=== PATIENT | male | born 1995 | race Caucasian/White ===

== ENCOUNTER 2020-01-05 12:29 | Emergency (ER) | payer OTHER ==
[~2020-01-05] VITALS: Ht 188 cm; Wt 72.6 kg
[2020-01-05 13:09] LABS: URINE BILIRUBIN NEGATIVE (Negative); URINE BLOOD 3+ (Negative); URINE CLARITY CLEAR; URINE COLOR YELLOW; URINE GLUCOSE-RANDOM NEGATIVE (Negative); URINE KETONES NEGATIVE (Negative); URINE LEUKOCYTES-REFLEX NEGATIVE (Negative); URINE NITRITE-REFLEX NEGATIVE (Negative); URINE PROTEIN NEGATIVE (Negative); URINE SPECIFIC GRAVITY 1.015 (1.005-1.030); URINE UROBILINOGEN 0.2 E.U./dl (0.2-1.0)
[2020-01-05 13:16] LABS: AMP/METHAMP Negative (Negative); BARBITURATES Negative (Negative); BENZODIAZEPINES Negative (Negative); COCAINE Negative (Negative); METHADONE Negative (Negative); OPIATES Negative (Negative); PCP Negative (Negative); THC POSITIVE (Negative)
[2020-01-05 13:18] LABS: BACTERIA-REFLEX 1-9 Few /HPF (None Seen); CASTS None Seen /LPF (None Seen); CRYSTALS None Seen /LPF (None Seen); SQUAMOUS 0-3 Few /LPF (0-3); URINE RBC 3-10 Few /HPF (0-2); URINE WBC-REFLEX 0-5 Rare /HPF (0-5)
[2020-01-05 13:21] LABS: ABSOLUTE BASOPHILS 0.1 thou/uL (0.0-0.2); ABSOLUTE EOSINOPHILS 0.2 thou/uL (0.0-0.7); ABSOLUTE MONOCYTES 0.5 thou/uL (0.0-1.2); ABSOLUTE NEUTROPHILS 4.7 thou/uL (1.6-8.1); BASOPHILS 0.9 %; EOSINOPHILS 2.5 %; HEMATOCRIT 30.4 % (42.0-52.0); HEMOGLOBIN 9.7 gm/dL (14.0-18.0); MCHC 31.9 g/dL (28.0-37.0); MCV 72.3 fL (80.0-100.0); MONOCYTES 7.2 %; MPV 6.5 fl. (7.2-11.1); NUCLEATED RBCS 0 /100WBC; PLATELET COUNT* 359 thou/uL (150-400); POLYS 74.4 %; RBC 4.21 mil/uL (4.50-6.00); RDW-CV 17.7 % (10.5-14.5); WBC 6.3 thou/uL (4.0-11.0)
[2020-01-05 13:33] LABS: CALCIUM 8.4 mg/dL (8.5-10.1); CREATININE 0.8 mg/dL (0.6-1.3)
[2020-01-05 13:38] LABS: TOTAL BILIRUBIN 0.2 mg/dL (<0.1-1.0); TOTAL PROTEIN 7.3 g/dL (6.4-8.2)
[2020-01-05] MEDS ORDERED: PREDNISONE 10 M10 M1 PO (14:52)
[2020-01-05] MEDS ORDERED: TRAMADOL 50 MG50 MG PO (14:52)
[2020-01-05] MEDS ORDERED: IRON325 M1 PO (14:58)
[2020-01-05 15:04] VITALS: BP 126/70
== END 2020-01-05 15:05 | disposition home or self-care (01) ==
LOC: M.ERS 12:29
PROVIDERS: Nurse Practitioner Psychiatric/Mental Health
DX: M46.1 Sacroiliitis, not elsewhere classified (principal); D64.9 Anemia, unspecified